=== PATIENT | female | born 1995 | race Caucasian/White ===

== ENCOUNTER 2017-03-13 10:42 | Emergency (ER) | payer OTHER ==
[2017-03-13 10:48] VITALS: BP 107/50; PULSE 73; TEMP 98.4; BMI 20.6
--- NOTE | 2017-03-13 11:46 | PDOC ---
"History of Present Illness - General Chief Complaint: Toothache Stated Complaint: TOOTHACHE History Source: Patient Exam Limitations: No Limitations - History of Present Illness Initial Comments: 03/13/17 12:13 Patient is a [21-year-old female, denies any significant medical history currently on oxacillin presents for evaluation of dental pain patient with decayed first bilateral lower molars, was seen by a dentist on Wednesday and told she needs an extraction now with increased pain. Was seen also in the emergency department at [facility] and given Motrin and amoxicillin which is not helping with the pain. Patient denies a nausea vomiting, no difficulty swallowing, no chest pain or shortness of breath. No facial swelling. ] Past Medical History: [Denies]. Allergies: No known allergies Medications: [Amoxicillin] Family History: Non-contributory Social History: Denies smoking, alcohol use, or IVDU Review of Systems GENERAL/CONSTITUTIONAL: [No fever or chills. No weakness. No weight change.] HEAD, EYES, EARS, NOSE AND THROAT: [No change in vision. No ear pain or discharge. No sore throat. Decayed, impacted, bilateral lower first molars.] CARDIOVASCULAR: [No chest pain or shortness of breath.] RESPIRATORY: [No cough, wheezing, or hemoptysis.] GASTROINTESTINAL: [No nausea, vomiting, diarrhea or constipation. No rectal bleeding.] GENITOURINARY: [No dysuria, frequency, or change in urination.] MUSCULOSKELETAL: [No joint or muscle swelling or pain. No neck or back pain.] SKIN AND BREASTS: [No rash or easy bruising.] NEUROLOGIC: [No headache, vertigo, loss of consciousness, or loss of sensation.] PSYCHIATRIC: [No depression or anxiety.] ENDOCRINE: [No increased thirst. No abnormal weight change.] HEMATOLOGIC/LYMPHATIC: [No anemia, easy bleeding, or history of blood clots.] ALLERGIC/IMMUNOLOGIC: [No hives or skin allergy. No latex allergy.] Physical Exam: GENERAL: [The patient is awake, alert, and fully oriented, in no acute distress. ] EYES: [Pupils equal, round and reactive to light, extraocular movements intact, sclera anicteric, conjunctiva clear.] ENT: [Ears normal, nares patent, oropharynx clear without exudates. Moist mucous membranes. No uvula deviation. Bilateral lower impacted decayed molars. ] NECK: [Normal range of motion, supple without lymphadenopathy, JVD, or masses.] LUNGS: [Breath sounds equal, clear to auscultation bilaterally. No wheezes, and no crackles.] HEART: [Regular rate and rhythm, normal S1 and S2 without murmur, rub or gallop. ] ABDOMEN: [Soft, nontender, normoactive bowel sounds. No guarding, no rebound. No masses. No bruising or abrasions] RECTAL : [Guaiac negative, normal rectal tone.] MUSCULOSKELETAL: [Normal range of motion, no edema. No clubbing or cyanosis. No cords, erythema, or tenderness. No CVA Tenderness with fist.] NEUROLOGICAL: [Cranial nerves II through XII grossly intact. Normal speech, normal gait.] SKIN: [Warm, Dry, normal turgor, no rashes or lesions noted.] Past History - Past Medical History Allergies/Adverse Reactions: Allergies Allergy/AdvReac Type Severity Reaction Status Date / Time No Known Allergies Allergy Verified 03/13/17 10:48 Home Medications: Ambulatory Orders Amox-Tr/K Cl [Augmentin - 875Mg Tablet] 1 tab PO BID #14 tablet 03/13/17 Oxycodone HCl/Acetaminophen [Percocet 5-325 mg Tablet] 1 tab PO Q4H 2 Days #12 tablet MDD 6 03/13/17 COPD: No - Suicide/Smoking/Psychosocial Hx Smoking History: Never smoked *Physical Exam - Vital Signs Last Vital Signs Temp Pulse Resp BP Pulse Ox 98.4 F 73 18 107/50 99 03/13/17 10:44 03/13/17 10:44 03/13/17 10:44 03/13/17 10:44 03/13/17 10:44 Medical Decision Making - Medical Decision Making 03/13/17 11:46 This report was requested by: Danielle Ruelas | Reference #: [id number] You have not added a DAISY number. Keeping your DAISY number(s) up to date on the My DAISY Numbers page will enable the separation of your prescriptions from others ' in the search results. Others' Prescriptions Patient Name: Damaris Smith Date: 1995 Address: [address] [place] [address] Sex: Female Rx Written Rx Dispensed Drug Quantity Days Supply Prescriber Name 10/16/2016 10/16/2016 oxycodone-acetaminophen 5-325 mg tablet 25 6 Ruth Cruz [employer] Pat[employer] with two inpacted lower first molars with decay. Pain to bilateral sides of the mouth. No facial swelling or redness. Was seen by the dentist on Wednesday was supposed to have both lower first molars pulled but was unable to stay because of childcare. Here for persistent pain. She was seen at [facility] the day before she was seen at the dentist, they gave her amoxicillin and motrin, Motrin not helping with the pain. I will give Toradol, discharged on Augmentin and Percocet with strict follow-up with dental clinic on Wednesday. She verbalized understanding, will follow up as instructed. *DC/Admit/Observation/Transfer Diagnosis at time of Disposition: Pain, dental - Discharge Dispostion Disposition: HOME - Prescriptions Prescriptions: Amox-Tr/K Cl [Augmentin - 875Mg Tablet] 1 tab PO BID #14 tablet Oxycodone HCl/Acetaminophen [Percocet 5-325 mg Tablet] 1 tab PO Q4H 2 Days #12 tablet MDD 6 - Referrals Referrals: Arun Field [Primary Care Provider] - - Patient Instructions Printed Discharge Instructions: DI for Tooth Decay, DI for Impacted Tooth Additional Instructions: Please follow up at the dental clinic on Wednesday mid call [phone] for directions and hours of operation they do take walk-ins from 8 AM to 12 PM If any facial swelling, difficulty swallowing, or any other concerns return to ER - Post Discharge Activity Forms/Work/School Notes: Back to Work"
[2017-03-13] MEDS ORDERED: KETOROLAC TROMETHAMINE 60 MG/2 ML VIAL IM ONE (11:57)
[2017-03-13] MEDS ORDERED: KETOROLAC TROMETHAMINE 60 MG/2 ML VIAL ONE (11:58)
== END 2017-03-13 12:09 | disposition home or self-care (01) ==
LOC: JERFT 10:42
PROC: 3E0233Z Introduction of Anti-inflammatory into Muscle, Percutaneous Approach (ICD-10-PCS; principal; 2017-03-13)
DX: K02.9 Dental caries, unspecified (principal)
CPT/HCPCS: 96372; 99281-25